=== PATIENT | female | born 1965 | race American Indian/Alaskan Native ===

== ENCOUNTER 2016-08-04 20:42 | Observation (INO) | payer BC ==
[2016-08-04 21:17] VITALS: BMI 25.2
--- NOTE | 2016-08-04 21:38 | ED PDOC ---
Arrival/HPI - General Chief Complaint: Headache Time Seen by Provider: 08/04/16 20:44 Historian: Patient - History of Present Illness Narrative History of Present Illness (Text): 08/04/16 21:38 Gabriela Rivera is a 50 year old female, whose past medical history includes asthma, who presents to the Emergency department complaining of near-syncope. Patient states 1 hour prior to arrival she had a frontal headache, described as pressure, and notes she felt near-syncopal and unsteady. Patient states she does not have a history of hypertension but took her blood pressure at home and noted it was elevated over 200 systolic. Patient denies any fever, chills, chest pain, shortness of breath, nausea, vomiting, diarrhea, urinary symptoms, back pain, neck pain, dizziness, or any other complaints. PMD: Dr. Gibson Time/Duration: Other (few days) Symptom Onset: Gradual Symptom Course: Unchanged Quality: Pressure Activities at Onset: Rest, Light Context: Home Past Medical History - Provider Review Nursing Documentation Reviewed: Yes - Infectious Disease Hx of Infectious Diseases: None - Tetanus Immunization Tetanus Immunization: Unknown - Past Medical History Past Medical History: Non-Contributing - Cardiac Hx Cardiac Disorders: No - Pulmonary Hx Asthma: Yes Hx Chronic Obstructive Pulmonary Disease (COPD): Yes - Neurological Hx Neurological Disorder: No Hx Dizziness: No Hx Vertigo: No - HEENT Hx HEENT Disorder: No Other/Comment: TMJ syndrome - Renal Hx Renal Disorder: No - Endocrine/Metabolic Hx Endocrine Disorders: No - Hematological/Oncological Hx Blood Disorders: No - Integumentary Hx Dermatological Disorder: No - Musculoskeletal/Rheumatological Other/Comment: R shoulder rotator cuff tear - Gastrointestinal Hx Gastrointestinal Disorders: No Hx Gastroesophageal Reflux: Yes - Genitourinary/Gynecological Hx Genitourinary Disorders: No - Psychiatric Hx Psychophysiologic Disorder: No Hx Substance Use: No - Surgical History Hx Appendectomy: Yes Hx Musculoskeletal Surgery: Yes (right rotator cuff surgery) Hx Tubal Ligation: Yes Other/Comment: tubal ligation - Anesthesia Hx Anesthesia: Yes Hx Anesthesia Reactions: No Hx Malignant Hyperthermia: No - Suicidal Assessment Feels Threatened In Home Enviroment: No Family/Social History - Physician Review Nursing Documentation Reviewed: Yes Family/Social History: No Known Family HX Smoking Status: Never Smoked Hx Alcohol Use: No Hx Substance Use: No Hx Substance Use Treatment: No Allergies/Home Meds Allergies/Adverse Reactions: Allergies No Known Allergies Allergy (Verified 04/23/16 14:58) Home Medications: Home Meds Medication Instructions Recorded Confirmed Mometasone/Formoterol [Dulera 100 13 gm IH DAILY 12/01/15 04/23/16 Mcg/5 Mcg Inhaler] Montelukast [Singulair] 10 mg PO DAILY 12/01/15 04/23/16 Review of Systems - Physician Review All systems were reviewed & negative as marked: Yes - Review of Systems Constitutional: Normal. absent: Fevers Eyes: Normal ENT: Normal Respiratory: Normal. absent: SOB, Cough Cardiovascular: Other (+high blood pressure, +near-syncope). absent: Chest Pain Gastrointestinal: Normal. absent: Abdominal Pain, Diarrhea, Nausea, Vomiting Genitourinary Female: Normal. absent: Dysuria, Frequency, Hematuria, Urine Output Changes Musculoskeletal: Normal. absent: Back Pain, Neck Pain Skin: Normal. absent: Rash Neurological: Headache Endocrine: Normal Hemo/Lymphatic: Normal Psychiatric: Normal Physical Exam Vital Signs Reviewed: Yes Vital Signs Temp Pulse Resp BP Pulse Ox 08/04/16 22:21 97.8 F 61 17 147/97 H 99 08/04/16 21:51 63 178/103 H 08/04/16 21:19 178/103 H Temperature: Afebrile Blood Pressure: Hypertensive Pulse: Regular Respiratory Rate: Normal Appearance: Positive for: Well-Appearing, Non-Toxic, Comfortable Pain Distress: None Mental Status: Positive for: Alert and Oriented X 3 - Systems Exam Head: Present: Atraumatic, Normocephalic Pupils: Present: PERRL Extroacular Muscles: Present: EOMI Conjunctiva: Present: Normal Mouth: Present: Moist Mucous Membranes Neck: Present: Normal Range of Motion Respiratory/Chest: Present: Clear to Auscultation, Good Air Exchange. No: Respiratory Distress, Accessory Muscle Use Cardiovascular: Present: Regular Rate and Rhythm, Normal S1, S2. No: Murmurs Abdomen: Present: Normal Bowel Sounds. No: Tenderness, Distention, Peritoneal Signs Back: Present: Normal Inspection Upper Extremity: Present: Normal Inspection. No: Cyanosis, Edema Lower Extremity: Present: Normal Inspection. No: Edema Neurological: Present: GCS=15, CN II-XII Intact, Speech Normal Skin: Present: Warm, Dry, Normal Color. No: Rashes Psychiatric: Present: Alert, Oriented x 3, Normal Insight, Normal Concentration Medical Decision Making ED Course and Treatment: 08/04/16 21:38 Impression: 49 year old female complaining of hypertension and frontal headache for the past few days. Pt also feels near-syncopal. Differential Diagnosis include but are not limited to: near-syncope Plan: -- CT Head w/o contrast -- EKG -- Chest X-ray -- Labs, cardiac enzymes -- Catapres -- Reassess and disposition Progress Notes: Reviewed EKG, NSR at [address]-segment elevations or depressions, no T-wave inversions, normal intervals. 08/04/16 23:41 Reviewed radiology, Chest X-ray shows no active disease. CT Head shows: No evidence of acute intracranial pathology. 08/05/16 00:[address] Gibson, who is aware and agrees with plan. Accepts pt in to his service. Pt will go to Telemetry observation for near-syncope. Requests Dr. Aleman on consult. Pt is no acute distress. Discussed results and hospital observation plan with pt , who is aware and verbalizes understanding. - Lab Interpretations Lab Results: 08/04/16 21:30 08/04/16 21:30 Lab Results 08/04/16 21:30: WBC 5.8, RBC 4.54, Hgb 12.8, Hct 38.3, MCV 84.4, MCH 28.2, MCHC 33.4, RDW 13.2, Plt Count 193, MPV 9.7, PT 11.8, INR 1.09 H, APTT 28.2, Sodium 141, Potassium 3.9, Chloride 103, Carbon Dioxide 27, Anion Gap 15, BUN 11, Creatinine 0.8, Est GFR ( Amer) > 60, Est GFR (Non-Af Amer) > 60, Random Glucose 88, Calcium 9.8, Total Bilirubin 0.5, AST 25, ALT 32, Alkaline Phosphatase 74, Lactate Dehydrogenase 531, Total Creatine Kinase 136, Troponin I 0.02, Total Protein 8.0, Albumin 4.3, Globulin 3.7, Albumin/Globulin Ratio 1.2 I have reviewed the lab results: Yes - RAD Interpretation Narrative RAD Interpretations (Text): Chest X-ray shows no active disease. CT Head shows: Brain: Unremarkable. No hemorrhage. No significant white matter disease. No edema. Ventricles: Unremarkable. No ventriculomegaly. Bones/joints: Unremarkable. No acute fracture. Soft tissues: Unremarkable. Sinuses: Unremarkable as visualized. No acute sinusitis. Mastoid air cells: Unremarkable as visualized. No mastoid effusion. IMPRESSION: No evidence of acute intracranial pathology. Radiology Orders: 08/04/16 21:46 HEAD W/O CONTRAST [CT] Stat 08/04/16 21:47 CHEST PORTABLE [RAD] Stat Animation Producer: ED Physician, Radiologist - EKG Interpretation Interpreted by ED Physician: Yes Type: 12 lead EKG - Medication Orders Current Medication Orders: Discontinued Medications Clonidine HCl (Catapres) 0.2 mg PO STAT STA Stop: 08/04/16 21:46 Last Admin: 08/04/16 21:51 Dose: 0.2 MG MAR Pulse and Blood Pressure Document 08/04/16 21:51 FJA (Rec: 08/04/16 21:52 FJA [facility] [place]-[id number]) Pulse Pulse Rate (60-90 beats/min) 63 Blood Pressure Blood Pressure (100/60-150/90 mm Hg) 178/103 - Scribe Statement The provider has reviewed the documentation as recorded by the Tatyana Castle Provider Attestation: All medical record entries made by the Tatyana were at my direction and personally dictated by me. I have reviewed the chart and agree that the record accurately reflects my personal performance of the history, physical exam, medical decision making, and the department course for this patient. I have also personally directed, reviewed, and agree with the discharge instructions and disposition. Disposition/Present on Arrival - Present on Arrival Any Indicators Present on Arrival: No History of DVT/PE: No History of Uncontrolled Diabetes: No Urinary Catheter: No History of Decub. Ulcer: No History Surgical Site Infection Following: None - Disposition Have Diagnosis and Disposition been Completed?: Yes Diagnosis: Near syncope, Hypertension Disposition: HOSPITALIZED Disposition Time: 00:06 Patient Plan: Observation Patient Problems: Current Active Problems Problem Status Diagnosed Hypertension Acute Near syncope Acute Condition: STABLE Referrals: Avila Gibson DO [Primary Care Provider] - Follow up with primary
[2016-08-04 22:05] LABS: ALB/GLOB RATIO 1.2 (1.1-1.8); ALKALINE PHOSPHATASE 74 U/L (38-133); ALT/SGPT 32 U/L (7-56); AST/SGOT 25 U/L (15-39); BILIRUBIN,TOTAL 0.5 mg/dL (0.2-1.3); BLOOD UREA NITROGEN 11 mg/dL (7-21); CALCIUM 9.8 mg/dL (8.4-10.5); CARBON DIOXIDE 27 mmol/L (21-33); CHLORIDE 103 mmol/L (98-107); GFR AFRICAN-AMERICAN > 60; GLUCOSE,RANDOM 88 mg/dL (70-110); POTASSIUM 3.9 mmol/L (3.6-5.0); SODIUM 141 mmol/L (132-148)
[2016-08-04 22:16] LABS: HEMATOCRIT 38.3 % (36.0-48.0); MEAN CELL VOLUME 84.4 fL (80.0-105.0); MEAN CORPUSCULAR HEMOGLOBIN 28.2 pg (25.0-35.0); MEAN CORPUSCULAR HGB CONC 33.4 g/dl (31.0-37.0); MEAN PLATELET VOLUME 9.7 fl (7.0-11.0); RED CELL DISTRIBUTION WIDTH 13.2 % (11.5-14.5); TROPONIN I 0.02 ng/mL; WHITE BLOOD COUNT 5.8 10^3/ul (4.5-11.0)
[2016-08-04 22:22] LABS: INR 1.09 (0.93-1.08); PARTIAL THROMBOPLASTIN TIME 28.2 Seconds (23.7-30.8)
[2016-08-05 00:44] VITALS: O2SAT 100
--- NOTE | 2016-08-05 07:25 | CT ---
PROCEDURE: CT HEAD WITHOUT CONTRAST. HISTORY: Headache COMPARISON: None available. TECHNIQUE: Axial computed tomography images were obtained through the head/brain without intravenous contrast. Radiation dose: Total exam DLP = 774.23 mGy-cm. This CT exam was performed using one or more of the following dose reduction techniques: Automated exposure control, adjustment of the mA and/or kV according to patient size, and/or use of iterative reconstruction technique. FINDINGS: HEMORRHAGE: No intracranial hemorrhage. BRAIN: Abad-white matter differentiation is preserved. There is no mass, mass effect or abnormal extra-axial fluid collection. VENTRICLES: The ventricles are normal in size, shape and configuration. CALVARIUM: The skull base and calvarium are normal. PARANASAL SINUSES: Predominantly clear. MASTOID AIR CELLS: Predominantly clear. OTHER FINDINGS: None. IMPRESSION: No acute intracranial abnormality. A preliminary report was provided by [employer] services.
--- NOTE | 2016-08-05 08:06 | RAD ---
HISTORY: medical clearance COMPARISON: 04/23/2016 FINDINGS: LUNGS: The lungs are well inflated and clear. PLEURA: No significant pleural effusion identified, no pneumothorax apparent. CARDIOVASCULAR: Normal. OSSEOUS STRUCTURES: No significant abnormalities. VISUALIZED UPPER ABDOMEN: Normal. OTHER FINDINGS: None. IMPRESSION: No active pulmonary disease.
--- NOTE | 2016-08-05 09:00 | HP ---
I saw the patient in her room this morning. She slept fairly well last night. She is feeling better than when she came in. She is less swollen. She presented a 50-year-old female with about a 3-day history of a frontal headache in her face, felt like pressure. She told me it felt like she was having nosebleed but no bleeding, that she felt near syncope like she was going to pass out and unsteady. She does not have a history of hypertension, but her blood pressure at home was noted to be 200 systolic. She tells me also that she did not have any salty foods or any bizarre food that could have raised her blood pressure and not under any stress and not sure why she felt this way. She came to the Emergency Room for evaluation. PAST MEDICAL HISTORY: She has a past medical history of COPD, TMJ, right shoulder rotator cuff tear, GERD. PAST SURGICAL HISTORY: She had an appendectomy, right rotator cuff tear surgery , tubal ligation. FAMILY HISTORY: No known family history. SOCIAL HISTORY: Never smoked, no alcohol, no drugs. ALLERGIES: No known drug allergies. MEDICATIONS: She was taking Dulera inhaler and Singulair for the pulmonary issues of her asthma. REVIEW OF SYSTEMS: She had a weird feeling on her face, a sensation that there was pressure and that she had a nosebleed but was not, also a headache. She had it for 3 days with elevated blood pressure and finally came to the Emergency Room. No changes in vision or hearing. No sore throat. No neck issues. There was a headache. Had a high blood pressure feeling, almost passed out. No chest pain. No nausea, vomiting, constipation or diarrhea. No problems urinating. No shortness of breath, no palpitations. No back pain. No leg pain. No skin rashes. There was a headache and feeling of sensation of pressure on her face. No anxiety or depression. PHYSICAL EXAMINATION: VITAL SIGNS: She has a 97.8 temp, 61 pulse, 17 respiratory rate. The blood pressure was as high as 178/103 in the ER, 99 pulse. GENERAL: She is well appearing, nontoxic, comfortable, upset about her situation. She is alert and oriented x 3. HEENT: Head is atraumatic, normocephalic. Extraocular muscles are intact. Pupil are equal, reactive to light and accommodation. Throat is moist. NECK: Supple, HEART: Regular rate. Normal S1, S2, no murmurs. LUNGS: Decreased breath sounds but clear to auscultation. ABDOMEN: Soft, nontender, positive bowel sounds. No guarding, no rebound, no CVA tenderness. SKIN: Intact. EXTREMITIES: No leg edema. Although, she told me she had edema the other day in her legs, she was swollen. NEUROLOGIC: Cranial nerves II-XII grossly intact. GCS is 15. Speech is normal. No neurological deficits that I could appreciate. Alert and oriented x 3. Normal insight. Normal concentration. LYMPHATICS: No palpable lymphadenopathy appreciated. Thyroid midline. She has had some hypertension, swelling, frontal facial headache, near syncope kind of feelings. She was brought in for observation. She has a consult with neurology and cardiology. I think she was given a dose of clonidine. EKG showed normal sinus rhythm, no ST elevations, no T-wave inversions. Chest x- ray showed no acute disease. CAT scan of the head showed no evidence of acute intracranial pathology. She had blood tests of 141 sodium, potassium 3.9, BUN 11, creatinine 0.8, GFR is greater than 60, sugar is 88, calcium is 9.8. Total bili is 0.5, AST is 25, ALT is 32, alk phos 74. Troponin 0.02. Total protein is 8, albumin is 4.3. INR is 1.09. She has a 5.8 white count, 12.8 hemoglobin, 38.3 hematocrit with 193 platelets. VITAL SIGNS: Presently, she has 98.4 temp, 77 pulse, 108/74 blood pressure. She also had a 107/72 blood pressure earlier at midnight. Now the blood pressure seems to be back to her baseline. Her respiratory rate is 22, 100% O2 sat on room air. There is a consult with neuro and a consult for cardiology at this time. What ever happened passed. She is here in observation. I will see what neuro and cardio will have to add. If it is okay with them, I might consider discharging her this afternoon for outpatient followup and keep in observation status. She is also feeling a lot better. This patient presented with hypertension, near syncope, asthma. Hopefully we can discharge her later on this morning. Avila Gibson DO cc: [id number] TT: 08/05/2016 08:57:44 mn [email or web address]
--- NOTE | 2016-08-05 09:27 | CON ---
DATE: 08/05/2016 HISTORY OF PRESENT ILLNESS: The patient is a 50-year-old woman who presents with severe headache ove r the sinus areas. This is associated with a blood pressure that she said was elevated. No loss of consciousness. No history of syncope in the past. The patient complained of intermittent dizziness which is now completely resolved. She has been walking to the bathroom without issues. The patient is free of cardiac history. She does not smoke, does not drink, does not use any drugs. She is on no medications at home. 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 REVIEW OF SYSTEMS: A 14-point review of systems was reviewed in detail. No cardiac symptomatology i s noted. PHYSICAL EXAMINATION: VITAL SIGNS: Blood pressure is 109 systolic. Heart rate is the 60s, normal sinus rhythm. NECK: Negative JVD. Negative bruits. HEART: Revealed S1, S2. LUNGS: Clear to auscultation. EXTREMITIES: Without edema. EKG is unremarkable. LABORATORIES: Troponins are negative x 1. The hemoglobin is 12.8. IMPRESSION: 1. Headache. 2. Transient hypertension, likely due to the pain. 3. No syncope. 4. Transient dizziness. Given these findings, the patient's cardiac status is stable. It is likely her transient elevated bl ood pressure was due to her pain from her headache which sounds like sinus headache. From a cardiac perspective, will discontinue telemetry. I have discussed with the patient about an e lective stress test and echocardiogram with which she is agreeable. Will schedule electively as an o utpatient. Sunny Lucio MD cc: [id number] TT: 08/05/2016 09:27:00 Confirmation # [id number] Dictation # [id number] mirna
[2016-08-05] MEDS ORDERED: Albuterol 0.5% Inhal Sol (2.5 mg/0.5 ml) UD IH SCH (09:30)
[2016-08-05 13:11] VITALS: RESP 20
[2016-08-05] MEDS: Albuterol 0.083% Inhal Sol (2.5 mg/3 mL) UD IH SCH ×2 (14:22→20:00)
--- NOTE | 2016-08-05 16:24 | CARD ---
APPROVED REPORT EKG Measurement Heart [id number] <Conclusion> Normal sinus rhythm Normal ECG
[2016-08-05] MEDS: MOMETASONE IH SCH (18:17)
[2016-08-05] MEDS: FORMOTEROL IH SCH (18:17)
[2016-08-05] MEDS ORDERED: Gadodiamide 287 MG/ML VIAL (15ML) IV ONE (20:15)
--- NOTE | 2016-08-05 21:52 | CON ---
DATE: 08/05/2016 HISTORY OF PRESENT ILLNESS: This is a 50-year-old black female with past medical history of COPD, as thma, right rotator cuff tear and GERD. The patient came to the hospital with a 3-day history of fro ntal headaches and felt like a pressure and also feels like having a nosebleed, but it was not bleedi ng. The patient was only having wretching, no vomiting. She felt like she was going to pass out, di d not lose consciousness. The patient does not have a history of high blood pressure, but blood pres sure was noted to be 200 in the ER. PAST MEDICAL HISTORY: COPD, right shoulder rotator cuff tear, GERD. PAST SURGICAL HISTORY: Appendectomy and right rotator cuff tear surgery and tubal ligation. SOCIAL HISTORY: Never smoked. Does not drink. ALLERGIES: No known drug allergies. MEDICATIONS: Singulair. REVIEW OF SYSTEMS: A 10-point review of system was negative. PHYSICAL EXAMINATION: HEENT: Normocephalic, atraumatic. VITAL SIGNS: Blood pressure was high 178/103. NECK: Supple. NEUROLOGIC: Alert, awake, oriented x 3. No aphasia. Cranial nerves II through XII were tested. Pu pils reactive. EOM intact. Visual lazo full. No facial asymmetry. Tongue midline. MOTOR EXAMIN ATION: Moves all the extremities equally. Tone normal. Deep tendon reflexes 1+. Both plantars are downgoing. Sensory appears intact. Cerebellar gait deferred. IMPRESSION: Syncope, less likely seizure. PLAN: We will do the MRI of the head without gadolinium and EEG. Further management after the resul ts of above tests. Murray Aleman MD cc: [id number] TT: 08/05/2016 21:51:51 Confirmation # [id number] Dictation # [id number] ginny
[2016-08-06] MEDS: Albuterol 0.083% Inhal Sol (2.5 mg/3 mL) UD IH SCH ×4 (02:15→11:39)
[2016-08-06 07:55] VITALS: BP 124/75; PULSE 77; TEMP 98
--- NOTE | 2016-08-06 09:40 | DS ---
POSSIBLE DISCHARGE SUMMARY I see her resting comfortably in bed. She is in no acute distress. The symptoms that she had with h er face are gone. She had an MRI finally, waiting for the results. She also needs to have an EEG by neurology. MEDICATIONS: She is on Dulera, albuterol, Singulair, and Tylenol. PHYSICAL EXAMINATION: GENERAL: She is comfortable in bed with no complaint. She is eating well. VITAL SIGNS: She has a 98 temp, 77 pulse, 124/75 blood pressure, 20 respiratory rate, 100% O2 sat. Since she has been in the hospital, blood pressures have been good, and that is when the symptoms we nt away. HEENT: Mouth is moist. NECK: Supple. HEART: Regular rate. LUNGS: Clear to auscultation. ABDOMEN: Soft, nontender, positive bowel sounds. EXTREMITIES: No edema. HEAD: Atraumatic, normocephalic. LABORATORY DATA: On the , they were all very good. Waiting for the MRI to result. If that is resulted, then she can be discharged today. We do not hav e to wait for the EEG result. The neurologist will check her on the outpatient. She will follow up with me and the neurologist on the outpatient. I am hoping to discharge later today. She was here for near syncope, hypertension, asthma. She is in observation status. Avila Gibson DO cc: [id number] TT: 08/06/2016 09:40:01 jn
[2016-08-06] MEDS: MOMETASONE IH SCH (10:06)
[2016-08-06] MEDS: FORMOTEROL IH SCH (10:06)
--- NOTE | 2016-08-06 10:39 | MRI ---
PROCEDURE: MRI BRAIN WITH AND WITHOUT CONTRAST HISTORY: Syncope COMPARISON: 08/04/2016 TECHNIQUE: Multiplanar, multisequence MR images of the brain were obtained with and without intravenous contrast enhancement. FINDINGS: HEMORRHAGE: None DWI: No evidence of an acute or early subacute infarction. BRAIN PARENCHYMA: Abad-white matter differentiation is preserved. There is no mass, mass effect, territorial infarction or extra-axial fluid collection. There is a partially empty sella. There is approximately 5 mm herniation of the cerebellar tonsils the low the foramina magnum. There is no evidence of syrinx in the visualized cervical cord. ENHANCEMENT: No abnormal intracranial enhancement. VENTRICLES: The ventricles are normal in size, shape and configuration. CRANIUM: There is normal bone marrow signal pattern. ORBITS: Grossly unremarkable. PARANASAL SINUSES/MASTOIDS: Clear VASCULAR SYSTEM: There are normal signal voids in the larger intracranial arteries. OTHER FINDINGS: None . IMPRESSION: 1. No acute intracranial abnormality. 2. 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 No evidence of syrinx in the visualized cervical cord.
--- NOTE | 2016-08-06 19:06 | EEG ---
DATE: 08/06/2016 CONDITION OF THE RECORDING: Awake, drowsy, history of syncope. PAST MEDICAL HISTORY: COPD. MEDICATIONS: Tylenol and Singulair. DESCRIPTION: Background activity of this tracing was composed of 8-9 cycles per second alpha rhythm, a large amount of beta activity was seen in the record, possibly secondary to medication. Drowsines s was composed of mixed beta and theta activity. Photic stimulation did not change the record. No p aroxysmal activity was seen in the record. IMPRESSION: Normal awake, drowsy electroencephalography. Murray Love MACKENZIE cc: [id number] TT: 08/06/2016 19:05:17 Confirmation # [id number] Dictation # [id number]
== END 2016-08-06 14:14 | disposition home or self-care (01) ==
LOC: ED 20:42 → ERH 08-05 00:03 → 2RNO 08-05 01:21 → 5RNO 08-05 21:30
PROVIDERS: ADMIT Family Medicine; ATTEND Family Medicine
DX: R55 Syncope and collapse (principal); I10 Essential (primary) hypertension; J45.909 Unspecified asthma, uncomplicated; J44.9 Chronic obstructive pulmonary disease, unspecified; K21.9 Gastro-esophageal reflux disease without esophagitis; M75.101 Unspecified rotator cuff tear or rupture of right shoulder, not specified as traumatic; R51 Headache; R42 Dizziness and giddiness
CPT/HCPCS: 70450; 70553; 71010; 80053; 82550; 83615; 84484; 85027; 85610; 85730; 93005; 94640; 95812; 99285; A9579; G0378